=== PATIENT | female | born 1935 | race Caucasian/White ===

== ENCOUNTER 2018-08-17 11:08 | Emergency (ER) | payer OTHER, MEDICARE ==
[2018-08-17 11:43] LABS: PLATELET COUNT 258 10^3/uL (150-400)
--- NOTE | 2018-08-17 12:06 | EDPHY ---
H & P Stated Complaint: SOB, HEADACHE, HIGH BP Time Seen by Provider: 08/17/18 11:57 HPI/ROS: CHIEF COMPLAINT: Trouble breathing HISTORY OF PRESENT ILLNESS: The patient is an 82 y/o female with history of hypertension, mitral valve repair, GA, and COPD who flew in from [facility] last night and arrives with her brother complaining of trouble breathing onset last night. She describes difficulty lying down last night and could not sleep due to shortness of breath. She describes feeling like she could not get enough air and used her ProAir inhaler without alleviation. This morning she had a headache and nausea. She took Excedrin at 08:00, 4 hours ago, and her headache has mostly improved. She denies chest pain, cough, fever, abdominal pain, vomiting, diarrhea, or other acute complaints. She reports she is compliant with her medications and has not missed any doses. She denies changes in food or salt intake. REVIEW OF SYSTEMS: A comprehensive 10 system review of systems is otherwise negative aside from elements mentioned in the history of present illness and medical decision making. Past medical history: COPD - Spiriva and ProAir, GA, hypertension Past surgical history: Mitral valve repair, 1 coronary stent, back surgeries x3 , bilateral hip surgeries, bilateral shoulder surgeries Family history: Noncontributory Social history: Brother at bedside. Visiting from [facility]. Adult Physical: General Appearance: Alert, no acute distress. BP 142/92 Eyes: Pupils equal and round, no conjunctival injection, no discharge. ENT, Mouth: Mucous membranes are moist, no oropharyngeal erythema or edema. Neck: No lymphadenopathy, supple. Respiratory: Lungs are clear to auscultation; no wheezes, rales, or rhonchi. Cardiovascular: Regular rate and rhythm; no murmur, rub, or gallop. Gastrointestinal: Abdomen is soft and non tender, no masses or organomegaly. Skin: Warm and dry, no rashes, normal color. Back: Nontender to palpation over the thoracolumbar spine. Extremities: No lower extremity edema, no calf tenderness or swelling. Neurological: Alert and oriented. Moving all four extremities easily and equally. Psychiatric: Normal affect. - Personal History Current Tetanus Diphtheria and Acellular Pertussis (TDAP): No - Medical/Surgical History Hx Asthma: No Hx Chronic Respiratory Disease: Yes Hx Diabetes: No Hx Cardiac Disease: Yes Hx Renal Disease: No Hx Cirrhosis: No Hx Alcoholism: Yes Hx HIV/AIDS: No Hx Splenectomy or Spleen Trauma: No Other PMH: COPD, GA, MITRAL VALVE REPAIR, HTN, BACK/SHOULDER/HIP SURGERY, - Social History Smoking Status: Former smoker Constitutional: Initial Vital Signs Temperature (C) 36.7 C 08/17/18 11:22 Heart Rate 96 08/17/18 11:22 Respiratory Rate 20 08/17/18 11:22 Blood Pressure 215/126 H 08/17/18 11:22 O2 Sat (%) 97 08/17/18 11:22 O2 Delivery Mode Room Air Allergies/Adverse Reactions: No Known Allergies Allergy (Unverified 08/17/18 11:26) Home Medications: Medication Instructions Recorded Atorvastatin Calcium 08/17/18 Carvedilol 08/17/18 Citalopram 08/17/18 Clonidine 08/17/18 Losartan Potassium 08/17/18 Meloxicam 08/17/18 Percocet 7.5-325 mg Tablet 08/17/18 Pramipexole ER 08/17/18 Medical Decision Making - Diagnostics Imaging: I viewed and interpreted images myself ED Course/Re-evaluation: This is a pleasant 82 y/o female with a history of COPD, GA, hypertension, and mitral valve repair who presents after a period of dyspnea last night. She flew in from [place] yesterday and had difficulty sleeping last night due to shortness of breath. She is extremely well-appearing on exam with normal lung sounds and normal saturation. Though she was hypertensive in triage, her BP at the time of my assessment here is 142/92. She is not experiencing chest pain. Doubt ACS. Plan for IV, labs, EKG, chest x-ray. Chest x-ray: no acute abnormality. The 12 lead EKG was interpreted by myself. Sinus mechanism. No acute ischemic changes. See hard copy and/or "tracemaster" electronic copy for interpretation. Troponin negative. Labs unremarkable. 1230: Reassessed patient and discussed findings. BP now 127/85 and SpO2 96%. I' ve found no concerning cause for her symptoms and she is nearly asymptomatic here. Will try duo neb for her mild subjective dyspnea and reassess. Oxygen saturation above 95% following DuoNeb. Her blood pressure has increased some prior to discharge and I suspect that this could be related to the DuoNeb. She is comfortable returning home. We discussed the possibility of this being her response to being at a higher [place] We also discussed descending if she should feel poorly. I do not find evidence of pneumonia. I do not think that she is having a significant COPD exacerbation, but this is in my differential diagnosis. She understands that if she is worsening in any way she should be re-evaluated. I do not suspect ACS and there is no evidence of CHF. I think PE is unlikely. She will continue her blood pressure medications as prescribed. She will continue to monitor her blood pressures. We reviewed the danger signs that might suggest end-organ dysfunction related hypertension. She will have her blood pressure checked by her primary care physician when she returns home. - Data Points Laboratory Results: Laboratory Results 08/17/18 11:34 08/17/18 11:34 Medications Given: Discontinued Medications Albuterol/Ipratropium (Duoneb) 3 ml IH EDNOW ONE Stop: 08/17/18 12:32 Last Admin: 08/17/18 12:33 Dose: 3 ml Point of Care Test Results: Chemistry 08/17/18 11:41 POC Troponin I 0.04 ng/mL ng/mL (0.00-0.08) Departure - Departure Disposition: Home, Routine, Self-Care Clinical Impression: Dyspnea Qualifiers: Dyspnea type: shortness of breath Qualified Code(s): R06.02 - Shortness of breath; R06.00 - Dyspnea, unspecified; R06.01 - Orthopnea Condition: Good Instructions: Dyspnea (ED) Additional Instructions: Continue all medications as directed. Follow up with your primary care provider upon your return home. Return to the ED for chest pain, worsening shortness of breath, fever, or other worsening of condition. Referrals: MARICEL CORONADO [Other] - As per Instructions Report Scribed for: Matilde Villavicencio Report Scribed by: Ree Michael Date of Report: 08/17/18 Time of Report: 12:12 Physician Review and Approval Statement: 08/20/18 14:04 Portions of this note were transcribed by the medical coordinator pesticide use. I, Dr. Matilde Villavicencio, personally performed the history, physical exam, and medical decision- making; and confirmed the accuracy of the information in the transcribed note.
[2018-08-17] MEDS ORDERED: IPRATROPIUM/ALBUTEROL 3 ML DEYVIAL IH ONE (12:31)
[2018-08-17 13:03] VITALS: BP 149/104
--- NOTE | 2018-08-17 15:12 | CPEKG ---
Test Reason : OPEN Blood Pressure : / mmHG Vent. Rate : 092 BPM Atrial Rate : 092 BPM P-R Int : 174 ms QRS Dur : 106 ms QT Int : 411 ms P-R-T Axes : 049 051 060 degrees QTc Int : 509 ms Sinus rhythm Left ventricular hypertrophy Anterior Q waves, possibly due to LVH Prolonged QT interval Confirmed by Matilde Villavicencio ([id number]) on 08/17/2018 3:12:15 PM Referred By: Confirmed By:Matilde Villavicencio
== END 2018-08-17 13:03 | disposition home or self-care (01) ==
DX: R06.00 Dyspnea, unspecified (principal); R51 Headache; I10 Essential (primary) hypertension; J44.9 Chronic obstructive pulmonary disease, unspecified; Z86.73 Personal history of transient ischemic attack (TIA), and cerebral infarction without residual deficits; Z95.2 Presence of prosthetic heart valve
CPT/HCPCS: 84484-PO